=== PATIENT | male | born 1930 | race Caucasian/White ===

== ENCOUNTER 2018-06-30 16:36 | Emergency (ER) | payer MEDICARE, OTHER ==
[2018-06-30 16:57] LABS: HEMATOCRIT 42.3 % (37.9-51.0); MEAN CORPUSCULAR HEMOGLOBIN 27.8 pg (27.0-33.4); MEAN CORPUSCULAR HGB CONC 33.1 g/dL (32.0-36.0); MEAN CORPUSCULAR VOLUME 84 fl (80-97); PLATELET COUNT 487 10^3/uL (150-450); RED BLOOD COUNT 5.05 10^6/uL (4.35-5.55); RED CELL DISTRIBUTION WIDTH 14.9 % (11.5-14.0); WHITE BLOOD COUNT 23.5 10^3/uL (4.0-10.5)
[2018-06-30 17:00] LABS: VENOUS BLOOD BASE EXCESS -1.7 mmol/L; VENOUS BLOOD HCO3 25.3 mmol/L (20-32); VENOUS BLOOD PCO2 52.2 mmHg (35-63); VENOUS BLOOD PH 7.3 (7.30-7.42)
[2018-06-30 17:05] LABS: ALANINE AMINOTRANSFERASE 38 U/L (21-72); ALBUMIN 3.8 g/dL (3.5-5.0); ALKALINE PHOSPHATASE 166 U/L (38-126); ANION GAP 17 (5-19); ASPARTATE AMINO TRANSFERASE 54 U/L (17-59); BILIRUBIN,DIRECT 0.5 mg/dL (0.0-0.4); BILIRUBIN,TOTAL 0.6 mg/dL (0.2-1.3); BLOOD UREA NITROGEN 31 mg/dL (7-20); CALCIUM 9.3 mg/dL (8.4-10.2); CARBON DIOXIDE 26 mmol/L (22-30); CHLORIDE 101 mmol/L (98-107); GLUCOSE 117 mg/dL (75-110); POTASSIUM 4.1 mmol/L (3.6-5.0); SODIUM 143.7 mmol/L (137-145); TOTAL PROTEIN 7.4 g/dL (6.3-8.2)
[2018-06-30 17:20] LABS: ABSOLUTE LYMPHOCYTES# (MANUAL) 2.8 10^3/uL (0.5-4.7); ABSOLUTE MONOCYTES # (MANUAL) 2.4 10^3/uL (0.1-1.4); ABSOLUTE NEUTROPHILS# (MANUAL) 18.3 10^3/uL (1.7-8.2); BASOPHILS % (MANUAL) 0 % (0-2); EOSINOPHILS % (MANUAL) 0 % (0-6); LYMPHOCYTES % (MANUAL) 12 % (13-45); MONOCYTES % (MANUAL) 10 % (3-13); SEGMENTED NEUTROPHILS % (MAN) 78 % (42-78); TOTAL CELLS COUNTED 100; TOXIC GRANULATION 3+; TOXIC VACUOLATION PRESENT
[2018-06-30 17:21] LABS: PLATELET COMMENT ADEQUATE
--- NOTE | 2018-06-30 17:26 | RADIOLOGY REPORT (SQ) ---
EXAM DESCRIPTION: CHEST SINGLE VIEW COMPLETED DATE/TIME: 06/30/2018 5:05 pm REASON FOR STUDY: difficulty breathing COMPARISON: None. EXAM PARAMETERS: NUMBER OF VIEWS: One view. TECHNIQUE: Single frontal radiographic view of the chest acquired. RADIATION DOSE: NA LIMITATIONS: None. FINDINGS: LUNGS AND PLEURA: The lungs are hyperexpanded. There is no infiltrate or effusion. There is no mass. MEDIASTINUM AND HILAR STRUCTURES: No masses. Contour normal. HEART AND VASCULAR STRUCTURES: Heart normal in size. Normal vasculature. BONES: No acute findings. HARDWARE: None in the chest. OTHER: No other significant finding. IMPRESSION: Chronic lung changes. No acute cardiopulmonary disease. TECHNICAL DOCUMENTATION: JOB ID: [id number] [employer]- All Rights Reserved Reading location - IP/workstation name: [email or web address]
[2018-06-30 17:29] LABS: CREATINE KINASE MB 3.25 ng/mL (<4.55)
[2018-06-30 17:33] LABS: TROPONIN I < 0.012 ng/mL
[2018-06-30] MEDS ORDERED: ALBUTEROL SULFATE 0.083% NEB 2.5 MG/3 ML AMPUL NEB ONE ×2 (18:03→23:45)
[2018-06-30] MEDS ORDERED: METHYLPREDNISOLONE INJ 125 MG/2 ML SDV IV ONE ×2 (18:03→23:57)
[2018-06-30 18:12] LABS: APPEARANCE,URINE SLIGHTLY-CLOUDY; BILIRUBIN,URINE NEGATIVE (NEGATIVE); COLOR,URINE YELLOW; GLUCOSE, URINE NEGATIVE (NEGATIVE); KETONES,URINE TRACE mg/dL (NEGATIVE); LEUKOCYTE ESTERASE,URINE NEGATIVE (NEGATIVE); NITRITE,URINE NEGATIVE (NEGATIVE); PROTEIN,URINE 30 mg/dL (NEGATIVE); URINE SPECIFIC GRAVITY 1.026
--- NOTE | 2018-06-30 19:16 | EKG REPORT ---
SEVERITY:- BORDERLINE ECG - SINUS TACHYCARDIA VENTRICULAR PREMATURE COMPLEX BORDERLINE T ABNORMALITIES, ANT-LAT LEADS : Confirmed by: Yanet Acosta MD 30-Jun-2018 19:15:44
[2018-06-30] MEDS ORDERED: CEFTRIAXONE INJ 1000 MG VIAL IV ONE (19:45)
[2018-06-30] MEDS ORDERED: AZITHROMYCIN INJ 500 MG VIAL IV ONE (19:46)
--- NOTE | 2018-06-30 19:46 | ER Document Report ---
ED Respiratory Problem - General Chief Complaint: Breathing Difficulty Stated Complaint: DIFFICULTY BREATHING Time Seen by Provider: 06/30/18 17:47 Notes: This is an 87-year-old male to the emergency department chief complaint of shortness of breath. Patient has a history of COPD. States he has had a "cold ". Continues to have worsening shortness of breath. Could not catch his breath tonight. Denies any chest pain at this time. Exertion seems to make it worse. No abdominal pain. No prior history of DVT or pulmonary embolism. Does not wear oxygen. Does not smoke but used to. Recent surgeries. No swelling of the calves. TRAVEL OUTSIDE OF THE [place] IN LAST 30 DAYS: No - HPI Patient complains to provider of: COPD, Short of breath Onset: Just prior to arrival Duration: Continuous, Worse/persistent Severity: None Pain Level: Denies Context: Hx COPD Short of Breath: Severe Sputum amount: Small Sputum color: Yellow - Related Data Allergies/Adverse Reactions: No Known Allergies Allergy (Unverified 06/30/18 21:44) Past Medical History - General Information source: Patient - Social History Smoking Status: Former Smoker Chew tobacco use (# tins/day): No Frequency of alcohol use: None Drug Abuse: None Lives with: Spouse/Significant other Family History: Reviewed & Not Pertinent Patient has suicidal ideation: No Patient has homicidal ideation: No - Past Medical History Cardiac Medical History: Reports: Hx Hypercholesterolemia, Hx Hypertension Pulmonary Medical History: Reports: Hx COPD Renal/ Medical History: Denies: Hx Peritoneal Dialysis Review of Systems - Review of Systems Notes: Constitutional: denies: Chills, Diaphoresis, Fever, Malaise, Weakness EENT: denies: Eye discharge, Blurred vision, Tearing, Double vision, Nose congestion, Nose discharge, Throat swelling, Mouth pain Cardiovascular: denies: Palpitations, Heart racing, Orthopnea, Chest pain. Does have shortness of breath Respiratory: Consistent with the following: Cough, shortness of breath, wheezing , sputum production Gastrointestinal: denies: Abdominal pain, Diarrhea, Nausea, Vomiting, Black stools, bright red blood in stool Genitourinary: denies: Burning, Dysuria, Discharge, Frequency, Flank pain, Hematuria Musculoskeletal: denies: Joint pain, Joint swelling, Muscle pain, Muscle stiffness, back pain Hematologic/Lymphatic: denies: Anemia, Easy bleeding, Easy bruising, Blood clots Neurological/Psychological: denies: Confusion, Dementia, Depression, Loss of consciousness Skin: No lesions, no masses, no skin breakdown, no abscesses Physical Exam - Vital signs Vitals: Pulse Ox 88 L 06/30/18 16:36 Interpretation: Tachycardic, Hypoxic, Tachypneic. No: Febrile - General General appearance: Appears well, Alert - HEENT Head: Normocephalic, Atraumatic Eyes: Normal Pupils: PERRL - Respiratory Respiratory status: Respiratory distress, Tripod position Chest status: Nontender Breath sounds: Decreased air movement, Wheezing Chest palpation: Normal - Cardiovascular Rhythm: Tachycardia Heart sounds: Normal auscultation Murmur: No - Abdominal Inspection: Normal Distension: No distension Bowel sounds: Normal Tenderness: Nontender Organomegaly: No organomegaly - Back Back: Normal, Nontender - Extremities General upper extremity: Normal inspection, Nontender, Normal color, Normal ROM , Normal temperature General lower extremity: Normal inspection, Nontender, Normal color, Normal ROM , Normal temperature, Normal weight bearing. No: Dony's sign - Neurological Neuro grossly intact: Yes Cognition: Normal Orientation: AAOx4 Emerson Coma Scale Eye Opening: Spontaneous Nikki Coma Scale Verbal: Oriented Emerson Coma Scale Motor: Obeys Commands Emerson Coma Scale Total: 15 Speech: Normal Motor strength normal: LUE, RUE, LLE, RLE Sensory: Normal - Psychological Associated symptoms: Normal affect, Normal mood - Skin Skin Temperature: Warm Skin Moisture: Dry Skin Color: Normal Course - Re-evaluation Re-evalutation: 06/30/18 20:44 Laboratory 06/30/18 06/30/18 06/30/18 16:25 16:25 16:45 WBC 23.5 H RBC 5.05 Hgb 14.0 Hct 42.3 MCV 84 MCH 27.8 MCHC 33.1 RDW 14.9 H Plt Count 487 H Total Counted 100 Seg Neutrophils % Not Reportable Seg Neuts % (Manual) 78 Lymphocytes % Not Reportable Lymphocytes % (Manual) 12 L Monocytes % Not Reportable Monocytes % (Manual) 10 Eosinophils % Not Reportable Eosinophils % (Manual) 0 Basophils % Not Reportable Basophils % (Manual) 0 Absolute Neutrophils Not Reportable Abs Neuts (Manual) 18.3 H Absolute Lymphocytes Not Reportable Abs Lymphs (Manual) 2.8 Absolute Monocytes Not Reportable Abs Monocytes (Manual) 2.4 H Absolute Eosinophils Not Reportable Absolute Eos (Manual) 0.0 Absolute Basophils Not Reportable Abs Basophils (Manual) 0.0 Toxic Granulation 3+ Toxic Vacuolation PRESENT Platelet Comment ADEQUATE Carbonic Acid HCO3/H2CO3 Ratio ABG pH ABG pCO2 ABG pO2 ABG HCO3 ABG Total CO2 ABG O2 Saturation ABG Base Excess VBG pH 7.30 VBG pCO2 52.2 VBG HCO3 25.3 VBG Base Excess -1.7 FiO2 Sodium 143.7 Potassium 4.1 Chloride 101 Carbon Dioxide 26 Anion Gap 17 BUN 31 H Creatinine 1.66 H Est GFR ( Amer) 48 L Est GFR (Non-Af Amer) 39 L Glucose 117 H Lactic Acid Calcium 9.3 Total Bilirubin 0.6 Direct Bilirubin 0.5 H Neonat Total Bilirubin Not Reportable Neonat Direct Bilirubin Not Reportable Neonat Indirect Bili Not Reportable AST 54 ALT 38 Alkaline Phosphatase 166 H Creatine Kinase CK-MB (CK-2) Troponin I NT-Pro-B Natriuret Pep Total Protein 7.4 Albumin 3.8 Urine Color Urine Appearance Urine pH Ur Specific [place]rop Urine Protein Urine Glucose (UA) Urine Ketones Urine Blood Urine Nitrite Urine Bilirubin Urine Urobilinogen Ur Leukocyte Esterase Urine WBC (Auto) Urine RBC (Auto) U Hyaline Cast (Auto) Urine Bacteria (Auto) Squamous Epi Cells Auto Urine Mucus (Auto) Urine Ascorbic Acid 06/30/18 06/30/18 06/30/18 16:45 16:45 16:45 WBC RBC Hgb Hct MCV MCH MCHC RDW Plt Count Total Counted Seg Neutrophils % Seg Neuts % (Manual) Lymphocytes % Lymphocytes % (Manual) Monocytes % Monocytes % (Manual) Eosinophils % Eosinophils % (Manual) Basophils % Basophils % (Manual) Absolute Neutrophils Abs Neuts (Manual) Absolute Lymphocytes Abs Lymphs (Manual) Absolute Monocytes Abs Monocytes (Manual) Absolute Eosinophils Absolute Eos (Manual) Absolute Basophils Abs Basophils (Manual) Toxic Granulation Toxic Vacuolation Platelet Comment Carbonic Acid HCO3/H2CO3 Ratio ABG pH ABG pCO2 ABG pO2 ABG HCO3 ABG Total CO2 ABG O2 Saturation ABG Base Excess VBG pH VBG pCO2 VBG HCO3 VBG Base Excess FiO2 Sodium Potassium Chloride Carbon Dioxide Anion Gap BUN Creatinine Est GFR ( Amer) Est GFR (Non-Af Amer) Glucose Lactic Acid 1.8 Calcium Total Bilirubin Direct Bilirubin Neonat Total Bilirubin Neonat Direct Bilirubin Neonat Indirect Bili AST ALT Alkaline Phosphatase Creatine Kinase 109 CK-MB (CK-2) 3.25 Troponin I < 0.012 NT-Pro-B Natriuret Pep Total Protein Albumin Urine Color Urine Appearance Urine pH Ur Specific [place]rop Urine Protein Urine Glucose (UA) Urine Ketones Urine Blood Urine Nitrite Urine Bilirubin Urine Urobilinogen Ur Leukocyte Esterase Urine WBC (Auto) Urine RBC (Auto) U Hyaline Cast (Auto) Urine Bacteria (Auto) Squamous Epi Cells Auto Urine Mucus (Auto) Urine Ascorbic Acid 06/30/18 06/30/18 06/30/18 16:45 17:50 20:10 WBC RBC Hgb Hct MCV MCH MCHC RDW Plt Count Total Counted Seg Neutrophils % Seg Neuts % (Manual) Lymphocytes % Lymphocytes % (Manual) Monocytes % Monocytes % (Manual) Eosinophils % Eosinophils % (Manual) Basophils % Basophils % (Manual) Absolute Neutrophils Abs Neuts (Manual) Absolute Lymphocytes Abs Lymphs (Manual) Absolute Monocytes Abs Monocytes (Manual) Absolute Eosinophils Absolute Eos (Manual) Absolute Basophils Abs Basophils (Manual) Toxic Granulation Toxic Vacuolation Platelet Comment Carbonic Acid 1.01 L HCO3/H2CO3 Ratio 20:1 ABG pH 7.41 ABG pCO2 33.5 L ABG pO2 63.7 L ABG HCO3 20.6 ABG Total CO2 21.6 L ABG O2 Saturation 92.7 L ABG Base Excess -3.3 VBG pH VBG pCO2 VBG HCO3 VBG Base Excess FiO2 3L Sodium Potassium Chloride Carbon Dioxide Anion Gap BUN Creatinine Est GFR ( Amer) Est GFR (Non-Af Amer) Glucose Lactic Acid Calcium Total Bilirubin Direct Bilirubin Neonat Total Bilirubin Neonat Direct Bilirubin Neonat Indirect Bili AST ALT Alkaline Phosphatase Creatine Kinase CK-MB (CK-2) Troponin I NT-Pro-B Natriuret Pep 711 H Total Protein Albumin Urine Color YELLOW Urine Appearance SLIGHTLY-CLOUDY Urine pH 5.0 Ur Specific [place]rop 1.026 Urine Protein 30 H Urine Glucose (UA) NEGATIVE Urine Ketones TRACE H Urine Blood NEGATIVE Urine Nitrite NEGATIVE Urine Bilirubin NEGATIVE Urine Urobilinogen 4.0 H Ur Leukocyte Esterase NEGATIVE Urine WBC (Auto) 13 Urine RBC (Auto) 9 U Hyaline Cast (Auto) 232 Urine Bacteria (Auto) TRACE Squamous Epi Cells Auto <1 Urine Mucus (Auto) OCC Urine Ascorbic Acid 20 H Patient with a history of COPD. Has fairly profound hypoxia when taken off of oxygen. Patient was on oxygen at the time of the ABG with a PO2 in the 60s. Not very significant for hypercarbia just more hypoxia. Patient does not want to stay however told him that this is likely going to kill him if he goes home. Patient will need recurrent breathing treatments, antibiotics, steroids. At this time based on his hypoxia I was expecting more elevation of his CO2. I do want to scan his chest to make sure that there is no underlying pulmonary embolism or mass at this time as well. His blood counts are extremely elevated over 20,000. Starting on antibiotics at this time. We will reassess the patient and try and convince him to stay. 06/30/18 22:03 Chest X-Ray 06/30/18 16:38 IMPRESSION: Chronic lung changes. No acute cardiopulmonary disease. Chest/Abdomen CTA 06/30/18 20:41 IMPRESSION: 1. No pulmonary embolism. 2. Diffuse emphysema with scarring at the lung bases. 3. Sequela of prior granulomatous disease. 06/30/18 22:54 Did discuss the case with [facility] they are comfortable accepting patient. Awaiting transport at this time. Dr. Crenshaw accepting. - Vital Signs Vital signs: Temp Pulse Resp BP Pulse Ox 98.6 F 18 128/76 H 90 L 06/30/18 20:19 06/30/18 21:17 06/30/18 21:17 06/30/18 21:17 - Laboratory Result Diagrams: 06/30/18 16:25 06/30/18 16:25 Laboratory results interpreted by me: 06/30/18 06/30/18 06/30/18 16:25 16:25 16:45 WBC 23.5 H RDW 14.9 H Plt Count 487 H Lymphocytes % (Manual) 12 L Abs Neuts (Manual) 18.3 H Abs Monocytes (Manual) 2.4 H Carbonic Acid ABG pCO2 ABG pO2 ABG Total CO2 ABG O2 Saturation BUN 31 H Creatinine 1.66 H Est GFR ( Amer) 48 L Est GFR (Non-Af Amer) 39 L Glucose 117 H Direct Bilirubin 0.5 H Alkaline Phosphatase 166 H NT-Pro-B Natriuret Pep 711 H Urine Protein Urine Ketones Urine Urobilinogen Urine Ascorbic Acid 06/30/18 06/30/18 17:50 20:10 WBC RDW Plt Count Lymphocytes % (Manual) Abs Neuts (Manual) Abs Monocytes (Manual) Carbonic Acid 1.01 L ABG pCO2 33.5 L ABG pO2 63.7 L ABG Total CO2 21.6 L ABG O2 Saturation 92.7 L BUN Creatinine Est GFR ( Amer) Est GFR (Non-Af Amer) Glucose Direct Bilirubin Alkaline Phosphatase NT-Pro-B Natriuret Pep Urine Protein 30 H Urine Ketones TRACE H Urine Urobilinogen 4.0 H Urine Ascorbic Acid 20 H - EKG Interpretation by Me EKG shows normal: [place], Intervals, QRS Complexes, ST-T Waves Rate: Tachycardia When compared to previous EKG there are: No significant change Additional EKG results interpreted by me: 06/30/18 20:44 Poor R wave progression. Critical Care Note - Critical Care Note Total time excluding time spent on procedures (mins): 45 Comments: Tachycardia, hypoxia, consultation with specialist, coordination of transfer of care. Discharge - Discharge Clinical Impression: COPD exacerbation, Renal insufficiency, mild, Congestive heart failure of unknown etiology Condition: Fair Disposition: [facility] Admitting Provider: Den Referrals: ARCELIA ANTHONY DO [Primary Care Provider] - Follow up as needed
[2018-06-30 20:21] LABS: ARTERIAL BLOOD BASE EXCESS -3.3 mmol/L; ARTERIAL BLOOD H2CO3 1.01 mmol/L (1.05-1.35); ARTERIAL BLOOD HCO3 20.6 mmol/L (20-24); ARTERIAL BLOOD O2 SATURATION 92.7 % (94-98); ARTERIAL BLOOD PCO2 33.5 mmHg (35-45); ARTERIAL BLOOD PH 7.41 (7.35-7.45); ARTERIAL BLOOD PO2 63.7 mmHg (80-100); ARTERIAL BLOOD TOTAL CO2 21.6 mmol/L (23-27)
[2018-06-30 20:23] LABS: ARTERIAL BLOOD FIO2 3L
--- NOTE | 2018-06-30 21:40 | RADIOLOGY REPORT (SQ) ---
CT CHEST ANGIOGRAPHY WITHOUT THEN WITH IV CONTRAST HISTORY: Shortness of breath. Evaluate for pulmonary embolism. COMPARISON: None. TECHNIQUE: CT angiogram of the chest with IV contrast. 3-D MIP images were obtained in coronal and sagittal reconstructions. This exam was performed according to our departmental dose-optimization program, which includes automated exposure control, adjustment of the mA and/or kV according to patient size and/or use of iterative reconstruction technique. FINDINGS: No acute pulmonary embolism is seen in the main or segmental branches. No thoracic aortic aneurysm or dissection. Atherosclerotic calcifications of the aorta and its major branches. Normal heart size. No pericardial effusion. Thyroid gland is unremarkable. Multiple calcified mediastinal and left hilar lymph nodes are seen. Small right hilar lymph nodes are also present. Diffuse emphysematous changes throughout the lungs with areas of scarring at the lung bases. No pleural effusions or pneumothorax. Punctate calcifications in the spleen. Small hiatal hernia is present. Degenerative changes of the spine. IMPRESSION: 1. No pulmonary embolism. 2. Diffuse emphysema with scarring at the lung bases. 3. Sequela of prior granulomatous disease.
[2018-07-01 02:13] VITALS: BP 127/74
== END 2018-07-01 02:27 ==
LOC: ER 16:36
DX: J44.1 Chronic obstructive pulmonary disease with (acute) exacerbation (principal); N28.9 Disorder of kidney and ureter, unspecified; I50.9 Heart failure, unspecified; R06.02 Shortness of breath; Z87.891 Personal history of nicotine dependence; I10 Essential (primary) hypertension
CPT/HCPCS: 93005; 94640 ×2; 99285; 96375; 96365; 36415; 87040; 82553; 82803 ×2; 82550; 83605; 85025; 80053; 81001; 84484; 83880; 71045; 71275; 93010; J2930; J0696; J0456; A9270